=== PATIENT | female | born 1960 | race Caucasian/White ===

== ENCOUNTER 2021-12-23 11:29 | Emergency (ER) | payer OTHER, SELFPAY ==
[2021-12-23 12:48] VITALS: BP 129/79; PULSE 67; RESP 18; TEMP 36.1; O2SAT 100; BMI 22.3
--- NOTE | 2021-12-23 15:32 | ED_ITS ---
HPI - Wound/Laceration General Chief Complaint: Wound/Laceration Stated Complaint: l index finger laceration Time Seen by Provider: 12/23/21 14:13 Source: patient Mode of arrival: ambulatory Limitations: no limitations History of Present Illness HPI narrative: 60-year-old female presents for injury to left index finger that she sustained from a rubber gasket inspector trimmer earlier this morning . Patient reached up to grab a branch, and lacerated her the tip of her left index Finger. She is up-to-date on her tetanus Related Data Allergies Allergy/AdvReac Type Severity Reaction Status Date / Time No Known Allergies Allergy Verified 12/23/21 12:48 Review of Systems Constitutional: Constitutional: Denies body ache(s), Denies chills, Denies fatigue, Denies fever(s), Denies headache(s), Denies malaise and Denies weakness Eyes: Eyes: Denies diplopia ENT: Denies vertigo, Denies dizziness, Denies headache(s) and Denies throat swelling Cardiovascular: Cardiovascular: Denies chest pain, Denies syncope, Denies leg edema, Denies lightheadedness, Denies Loss of Consciousness, Denies palpitations and Denies dyspnea Respiratory: Respiratory: Denies chest congestion, Denies cough and Denies dyspnea Musculoskeletal: Musculoskeletal: Reports no additional musculoskeletal complaints, Denies arthralgias, Denies joint swelling, Denies limited range of motion, Denies numbness and Denies tingling Integumentary/Breasts: Comments: Laceration to left index finger Neurologic: Denies confusion, Denies vertigo, Denies dizziness, Denies syncope, Denies headache(s), Denies numbness, Denies tingling and Denies weakness Psychiatric: Psychiatric: Denies anxiety, Denies confusion and Denies depression Endocrine: Endocrine: Denies fatigue and Denies palpitations Allergic/Immunologic: Allergic/Immunologic: Denies throat swelling PMFSH Social History Social History Advance Directives: No Physical Exam Vital Signs: Vital Signs: Last Vital Signs Temp 96.9 F 12/23/21 12:48 Pulse 67 12/23/21 12:48 Resp 18 12/23/21 12:48 BP 129/79 12/23/21 12:48 Pulse Ox 100 12/23/21 12:48 BMI result Body Mass Index 22.3 Const: General: No confusion Nutritional Appearance: well nourished Orientation/consciousness: No confusion Limitations: no limitations Eyes: Conjunctivae: conjunctivae normal Pupils: Equal, round and reactive pupils present EOM: EOMs intact bilaterally Neck: Neck: Yes full ROM, Yes no lymphadenopathy and Yes supple Resp: Effort & Inspection: normal respiratory effort and able to speak in complete sentences Auscultation: clear to auscultation bilaterally, no crackles, no rales, no rhonchi and no wheezes Cardio: Rate: regular rate Rhythm: regular rhythm Heart sounds: S1 normal heart sound present and S2 normal heart sound present Skin: Trauma: laceration left plantar 2nd finger Neuro: General: No confusion Cranial nerves: Yes Equal, round and reactive pupils present Extrem: General: Yes normal to inspection and Yes full ROM Psych: Appearance: grossly normal Affect: normal affect Attitude: cooperative Thought process: Normal thought process present Course Course Course Narrative: 60-year-old female presents with laceration to tip of left index finger that she sustained using rubber gasket inspector trimmer earlier today. Laceration was repaired using sterile technique, patient was given instructions return precautions, wound care instructions. Of patient's questions were answered Procedures Laceration Laceration 1: Site: hand Side (If applicable): left (tip index finger) Size (cm): 1.5 Description: linear Depth: simple, single layer Local Anesthetic: lidocaine 2% Amount of anesthesia used (mL): 3 Pre-repair: wound explored, irrigated extensively and deep structures intact Skin layer closed with: vicryl Number of sutures: 4 Technique: simple, interrupted Discharge Plan Discharge Clinical Impression: Laceration Patient Disposition: Home, Self-Care Instructions: Laceration (ED) Additional Instructions: You have FOUR stitiches. These need to be removed in 7 days, by December 30. Keep the dressing on until tomorrow at this time, take the dressing off, wash with soap and water, gently pat dry, thin layer of bacitracin, nonstick dressing. Redo this procedure for the next 4 days, after that you can just cover with a Band-Aid. If you have redness, swelling, warmth, pus, increased pain, these are signs of infection, please return to be seen
== END 2021-12-23 15:59 | disposition home or self-care (01) ==
PROVIDERS: Emergency Provider Emergency Medicine; PCP Internal Medicine
DX: S61.211A Laceration without foreign body of left index finger without damage to nail, initial encounter (principal); W29.3XXA Contact with powered garden and outdoor hand tools and machinery, initial encounter; Y93.9 Activity, unspecified; Y92.007 Garden or yard of unspecified non-institutional (private) residence as the place of occurrence of the external cause; Y99.9 Unspecified external cause status
CPT/HCPCS: 12001; 99284